=== PATIENT | male | born 1945 ===

== ENCOUNTER 2023-05-25 06:30 | Day surgery (SDC) | payer OTHER ==
[~2023-05-25] VITALS: Ht 165.1 cm; Wt 114.7 kg
[2023-05-25] VITALS (8 sets, daily range): BP systolic 114–147; BP diastolic 67–98
[~2023-05-25 06:30] MED LIST: ATOR20 PO; ELIQUIS5 M2 PO; HYDACE10B PO; IBUP800 PO; LISI10 PO; METO25ER PO; TAMS.4ER PO; VITAMIN D31250 MC2 PO
--- NOTE | 2023-05-25 10:10 | NUR ---
ARRIVAL TO PCU PT BROUGHT TO PCU 10 WITH [employer] STAFF. PT IS ALERT, PARTICIPATING IN CONVERSATION WITH STAFF AND FAMILY. DRESSING ON L CHEST C/D/I. EDUCATION PROVIDED REGARDING LIMITED ROM FOR L ARM AND SLING PLACED. PT REQUIRES FREQUENT REDIRECTION TO RESTRICT ARM MOVEMENT. HE DENIES CHEST PAIN. HR 60S-70S ON MONITOR. SBP 130S. PT ON RA WITH SPO2 >95%, DENIES SOB. PT ASSISTED WITH URINAL AND VOIDED 400ML. BED IN LOW POSITION AND CALL LIGHT WITHIN REACH. FAMILY AT BEDSIDE.
--- NOTE | 2023-05-25 14:42 | NUR ---
FAMILY CONCERN DAUGHTER JOLIE REPORTS CONCERNS REGARDING PT'S MENTATION. SHE REPORTS OVER THE LAST FEW MONTHS PT IS MORE FORGETFUL AND WOULD LIKE HIM TO "BE TESTED FOR DEMENTIA". SHE PROVIDES SEVERAL EXAMPLES OF SCENARIOS WHERE PT IS FORGETFUL. SHE STS PT'S OTHER DAUGHTER ASSISTS WITH HOME MEDICATIONS. JOLIE ALSO REPORTS PT'S SPOUSE WAS RECENTLY ADMITTED TO ICU AND DISCHARGED BACK HOME. PT IS A&OX2-3. PT ANSWERS QUESTIONS INCONSISTENTLY AND OFTEN TAKES CONVERSATION IN VARYING DIRECTIONS.
--- NOTE | 2023-05-25 17:03 | NUR ---
SHIFT SUMMARY PT IS A&OX3 WITH PLEASANT AFFECT. HE CONTINUES TO ANSWER SOME QUESTIONS INCONSISTENTLY. DAUGHTER HAS BEEN AT BEDSIDE THROUGHOUT THE DAY. PACEMAKER DRESSING REMAINS C/D/I. 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 RATE VARIES IN 60S-70S. STRONG RADIAL AND PEDAL PULSES. SBP 120S-140S. HE DENIES CP OR PALPITATIONS. L ARM IN SLING, CONTINUING TO REMIND PT OF LIMB RESTRICTIONS. APPETITE HAS IMPROVED. PT HAD 1 BM THIS SHIFT. HE HAS VOIDED CLEAR YELLOW URINE. PT CURRENTLY SITTING ON EDGE OF BED VISITING WITH DAUGHTER. BED IN LOW POSITION AND CALL LIGHT WITHIN REACH.
[2023-05-26 00:41] VITALS: BP 123/71
[2023-05-26 04:11] VITALS: BP 143/80
--- NOTE | 2023-05-26 06:32 | NUR ---
SHIFT SUMMARY PATIENT ALERT AND ORIENTED X3, FORGETFUL. REQUIRES FREQUENT REMINDERS TO NOT USE HIS LEFT ARM WHILE AWAKE. DRESSING OVER PACER SITE CLEAN, DRY, AND INTACT. SLING IN PLACE ON LEFT ARM. LUNG SOUNDS CLEAR, SPO2 >90% ON ROOM AIR. PATIENT HAD NO COMPLAINTS OF CHEST PAIN OR SHORTNESS OF BREATH. VITAL SIGNS STABLE, SINUS RHYTHM WITH PVC'S AND PACED BEATS ON TELE. NO ACUTE ISSUES NOTED OVERNIGHT. PATIENT ASSESSED FOR IGNITION RISK AND EDUCATED ON FIRE SAFETY IN THE HOSPITAL. WILL CONTINUE TO MONITOR. CALL LIGHT WITHIN REACH.
[2023-05-26 07:45] VITALS: BP 148/74
--- NOTE | 2023-05-26 09:52 | NUR ---
ASSUMED CARE: ASSUMED CARE OF PT APPROX [id number]. PT A&OX3, FORGETFUL AT TIMES. PT RESTING IN BED, LEFT ARM IN SLING. LEFT UPPER CHEST DRESSING CLEAN, DRY, AND INTACT. PT DENIES PAIN. VSS. CALL LIGHT WITHIN REACH, NO FURTHER NEEDS AT THIS TIME.
--- NOTE | 2023-05-26 10:58 | NUR ---
FAMILY CONCERN: PT'S DAUGHTER, HARJIT, CALLED WITH CONCERNS R/T PT CONDITION. HARJIT STATES THAT SHE JUST SPOKE TO PT'S . PT'S REPORTEDLY TOLD HARJIT THAT "SHE NEEDED TO COME TO THE HOSPITAL BECAUSE HER DAD IS DYING." HARJIT REQUESTED AN UPDATE ON PT'S CONDITION. THIS RN ADVISED HARJIT THAT DR. PORTER JUST CAME TO BEDSIDE AND PLACED DISCHARGE ORDERS FOR PT. INFORMED HARJIT THAT THE PT DENIES ALL PAIN AND VITAL SIGNS ARE STABLE. DISCUSSED D/C ORDERS, MEDICATIONS, AND LEFT ARM RESTRICTIONS. HARJIT STATED THAT THE PT'S OR OTHER DAUGHTER WILL BE THE ONE TO SHAREHOLDER PT ON D/C.
--- NOTE | 2023-05-26 11:03 | NUR ---
SAFETY EDUCATION: PT EDUCATED ON FIRE SAFETY AND IGNITION SOURCES AT THE HOSPITAL. PT VOIDED UNDERSTANDING.
[2023-05-26] MEDS ORDERED: CEPH500 PO (11:19)
[2023-05-26 11:23] VITALS: BP 126/58
== END 2023-05-26 14:10 | disposition home or self-care (01) ==
LOC: MHTC 06:30 → PCU 06:30 → MHTC 06:32 → PCU 08:57 → MHTC 05-26 14:10
PROC: 0JH606Z Insertion of Pacemaker, Dual Chamber into Chest Subcutaneous Tissue and Fascia, Open Approach (ICD-10-PCS; principal; 2023-05-25)
DX: I44.2 Atrioventricular block, complete (principal); I44.0 Atrioventricular block, first degree; I48.0 Paroxysmal atrial fibrillation; I10 Essential (primary) hypertension; E78.5 Hyperlipidemia, unspecified; N40.0 Benign prostatic hyperplasia without lower urinary tract symptoms; E66.01 Morbid (severe) obesity due to excess calories; F17.290 Nicotine dependence, other tobacco product, uncomplicated; F17.210 Nicotine dependence, cigarettes, uncomplicated; Z79.01 Long term (current) use of anticoagulants; Z79.899 Other long term (current) drug therapy; Z95.0 Presence of cardiac pacemaker
CPT/HCPCS: 33208; 71045; 76937; 99152; 99153; A9270; C1781; C1785; C1894; C1898; J0690; J1644; J2250; J3010; J7030; J7040